=== PATIENT | male | born 1980 | race Two or more races ===

== ENCOUNTER 2019-06-08 21:19 | Emergency (ER) | payer BC ==
[~2019-06-08] VITALS: Ht 172.7 cm; Wt 74.8 kg
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
[2019-06-08] MEDS ORDERED: HYDROCODONE/APAP 5/325MG 1 EACH TABLET PO ONE (22:30)
[2019-06-08] MEDS ORDERED: ONDANSETRON 4 MG TAB.RAPDIS SL ONE (22:30)
[2019-06-08] MEDS ORDERED: IBUPROFEN 400 MG TABLET PO ONE (22:30)
[2019-06-08] MEDS ORDERED: ONDANSETRON 4 MG TAB.RAPDIS ONE (22:38)
[2019-06-08] MEDS ORDERED: IBUPROFEN 400 MG TABLET ONE (22:38)
[2019-06-08] MEDS ORDERED: HYDROCODONE/APAP 5/325MG 1 EACH TABLET ONE (22:38)
--- NOTE | 2019-06-09 00:03 | NUR ---
Patient discharged to home in stable condition. rx and Written and verbal after care instructions given. Patient verbalizes understanding of instruction.
[2019-06-09 00:08] VITALS: BP 119/75
== END 2019-06-09 00:08 | disposition home or self-care (01) ==
LOC: ER 21:22
DX: S39.012A Strain of muscle, fascia and tendon of lower back, initial encounter (principal); S20.219A Contusion of unspecified front wall of thorax, initial encounter; S80.02XA Contusion of left knee, initial encounter; S19.80XA Other specified injuries of unspecified part of neck, initial encounter; V49.49XA Driver injured in collision with other motor vehicles in traffic accident, initial encounter; Y93.89 Activity, other specified; Y92.413 State road as the place of occurrence of the external cause; Y99.8 Other external cause status
CPT/HCPCS: 71111; 73564; 99284; Q0162